=== PATIENT | female | born 1960 | race Caucasian/White ===

== ENCOUNTER 2016-06-22 20:37 | Emergency (ER) | payer MEDICARE ==
[2016-06-22 21:21] LABS: HEMOGLOBIN 13.5 gm/dl (12.3-15.3); RED BLOOD COUNT 4.86 M/UL (4.00-5.10); WHITE BLOOD COUNT 9.3 K/UL (4.5-11.0)
[2016-06-22 21:40] LABS: BUN/CREATININE RATIO 68 (0-10)
== END 2016-06-23 00:30 | disposition home or self-care (01) ==
LOC: ER1 20:37
PROVIDERS: Emergency Medicine
DX: N39.0 Urinary tract infection, site not specified (principal); Z88.0 Allergy status to penicillin; Z88.8 Allergy status to other drugs, medicaments and biological substances
CPT/HCPCS: 36415; 71010; 80053; 81001; 82550; 82553; 83605; 83690; 83874; 84484; 85025; 87040; 87077; 87086; 87186; 99283

== ENCOUNTER → 2016-07-21 | Outpatient (CLI) | payer MEDICARE | LOC: US 13:03 | DX: R33.9 Retention of urine, unspecified (principal); N27.0 Small kidney, unilateral; N20.0 Calculus of kidney; K80.20 Calculus of gallbladder without cholecystitis without obstruction ==

== ENCOUNTER → 2016-07-28 | Outpatient (CLI) | payer MEDICARE | LOC: KOH-I 08:48 | DX: N20.0 Calculus of kidney (principal) | CPT/HCPCS: 74176 ==

== ENCOUNTER → 2021-04-06 | Outpatient (CLI) | payer MEDICARE ==
[~2021-04-06] MED LIST: ENULOSE10 GM/15 M PO
== END ==
LOC: RAD 14:18
DX: N20.0 Calculus of kidney (principal); K59.00 Constipation, unspecified
CPT/HCPCS: 74019